=== PATIENT | male | born 1985 | race American Indian/Alaskan Native ===

== ENCOUNTER 2022-01-11 21:23 | Emergency (ER) | payer SELFPAY ==
[2022-01-11] MEDS ORDERED: ONDANSETRON 4 MG ODT TAB PO ONE (23:08)
--- NOTE | 2022-01-11 23:16 | Emergency Department Report ---
ED N/V/D HPI - General Chief complaint: Overdose Stated complaint: HANDS SHAKING SINCE EATING AN EDIBLE Time Seen by Provider: 01/11/22 23:04 Source: patient Mode of arrival: Ambulatory Limitations: No Limitations - History of Present Illness Initial comments: 36-year-old black male with no past medical history presents to the emergency department for evaluation of nausea and tremors after eating an edible. He states that about 1 hour prior to arrival, he ingested and edible for the first time ever. He states that he was unsure about how much to eat so he just ate the entire thing, and then started to have nausea without vomiting and tremors to his hands whenever he held them out straight, so he decided to come to the ED for further evaluation. He denies chest pain, shortness of breath, active vomiting, hallucinations, SI, or HI. MD complaint: nausea -: Sudden, hour(s) (1.5) Associated Abdominal Pain: No Context: other (After eating THC edibles) Associated Symptoms: nausea/vomiting. denies: myalgias, chest pain, cough, diaphoresis, fever/chills, headaches, loss of appetite, malaise, rash, dysuria, shortness of breath, syncope, weakness - Related Data Previous Rx's Medication Instructions Recorded Last Taken Type Ondansetron [Zofran Odt] 4 mg PO Q8HR PRN #12 tab.rapdis 01/11/22 Unknown Rx Allergies Allergy/AdvReac Type Severity Reaction Status Date / Time No Known Allergies Allergy Unverified 01/11/22 21:47 ED Review of Systems ROS: Stated complaint: HANDS SHAKING SINCE EATING AN EDIBLE Other details as noted in HPI Comment: All other systems reviewed and negative Constitutional: denies: chills, diaphoresis, fever, malaise, weakness Eyes: denies: eye pain ENT: denies: ear pain Respiratory: denies: cough, shortness of breath, SOB with exertion, SOB at rest, stridor, wheezing Cardiovascular: denies: chest pain, palpitations, dyspnea on exertion, orthopnea, edema, syncope, paroxysmal nocturnal dyspnea Endocrine: no symptoms reported Gastrointestinal: nausea. denies: abdominal pain, vomiting, diarrhea, constipation, hematemesis, melena, hematochezia Genitourinary: denies: urgency, dysuria, frequency, hematuria, discharge, testicular pain Musculoskeletal: denies: back pain Skin: denies: rash, lesions Neurological: denies: headache, weakness, numbness, paresthesias, confusion, abnormal gait, vertigo Psychiatric: denies: anxiety, auditory hallucinations, visual hallucinations, homicidal thoughts, suicidal thoughts Hematological/Lymphatic: denies: easy bleeding, easy bruising ED Past Medical Hx - Past Medical History Previous Medical History?: No - Surgical History Past Surgical History?: No - Medications Home Medications: Home Medications Medication Instructions Recorded Confirmed Last Taken Type Ondansetron [Zofran Odt] 4 mg PO Q8HR PRN #12 tab.rapdis 01/11/22 Unknown Rx ED Physical Exam - General Limitations: No Limitations General appearance: alert, in no apparent distress - Head Head exam: Present: atraumatic, normocephalic - Eye Eye exam: Present: normal appearance, conjunctival injection. Absent: periorbital swelling, periorbital tenderness - Neck Neck exam: Present: normal inspection, full ROM. Absent: tenderness - Respiratory Respiratory exam: Present: normal lung sounds bilaterally. Absent: respiratory distress, wheezes, rales, rhonchi, stridor, chest wall tenderness, accessory muscle use - Cardiovascular Cardiovascular Exam: Present: regular rate, normal heart sounds - GI/Abdominal GI/Abdominal exam: Present: soft, normal bowel sounds. Absent: distended, tenderness, guarding, rigid - Extremities Exam Extremities exam: Present: normal inspection - Back Exam Back exam: Present: normal inspection, full ROM. Absent: CVA tenderness (R), CVA tenderness (L), paraspinal tenderness, vertebral tenderness - Neurological Exam Neurological exam: Present: alert, oriented X3 - Psychiatric Psychiatric exam: Present: normal affect, normal mood - Skin Skin exam: Present: warm, dry, intact, normal color ED Course Vital Signs 01/11/22 01/11/22 21:45 23:48 Temperature 98.2 F Pulse Rate 93 H 81 Respiratory 18 20 Rate Blood Pressure 167/110 Blood Pressure 143/79 [Right] O2 Sat by Pulse 93 98 Oximetry ED Medical Decision Making - Medical Decision Making 36-year-old black male with no past medical history presents to the emergency department for evaluation of nausea and tremors after eating an edible. He states that about 1 hour prior to arrival, he ingested and edible for the first time ever. He states that he was unsure about how much to eat so he just ate the entire thing, and then started to have nausea without vomiting and tremors to his hands whenever he held them out straight, so he decided to come to the ED for further evaluation. He denies chest pain, shortness of breath, active vomiting, hallucinations, SI, or HI No acute distress noted. Patient will be treated with Zofran ODT while in the emergency department, and sent home with prescription for Zofran to use as needed for nausea. He was advised to consider not using edible THC. He was advised to take medications as prescribed and follow-up with primary care provider if no improvement or worsening symptoms. He was advised to return to the emergency department for any concerning symptoms. Plan of care was reviewed with patient, and he verbalized understanding of and agreement with plan of care. Critical care attestation.: If time is entered above; I have spent that time in minutes in the direct care of this critically ill patient, excluding procedure time. ED Disposition Clinical Impression: Nausea alone Disposition: 01 HOME / SELF CARE / HOMELESS Is pt being admited?: No Does the pt Need Aspirin: No Condition: Stable Instructions: Nausea, Adult, [id number] Additional Instructions: Stop using edibles. Take medication as prescribed. Follow-up with primary care provider if no improvement or worsening symptoms. Prescriptions: Ondansetron [Zofran Odt] 4 mg PO Q8HR PRN #12 tab.rapdis PRN Reason: Nausea Referrals: RICHARD ALEXANDER MD [Referring] - 3-5 Days Time of Disposition: 23:18
[2022-01-11 23:51] VITALS: BP 143/79
== END 2022-01-11 23:48 | disposition home or self-care (01) ==
LOC: ED 21:23
DX: R11.0 Nausea (principal)
CPT/HCPCS: 99282; J3490; Q0162